=== PATIENT | female | born 1955 | race Caucasian/White ===

== ENCOUNTER → 2016-09-29 | Outpatient (CLI) | payer OTHER ==
[~2016-09-29] MED LIST: CLAR10CA3 PO; METO12TA PO; MULTTAB4 PO; PRAD150C PO
--- NOTE | 2016-10-05 08:06 | SLEEPCENT ---
DATE OF PROCEDURE: 09/29/2016 REQUESTING PROVIDER: Kayla Thomas NP INTERPRETATION: Nocturnal polysomnography was performed for the titration of pressure therapy in this patient with obstructive sleep apnea syndrome, apnea-hypopnea index of 5.2. For testing, the patient was fit with a [employer] Quattro full face mask of small size, 4 cm of water pressure were applied to the circuit, and the lights were extinguished. 7 hours and 21 minutes of data were reviewed. There were 379 minutes of sleep identified. Sleep latency was normal at 11.5 minutes. Rapid eye movement (REM) latency was delayed at 130 minutes. Sleep architecture was fairly good. There were three REM periods noted. Overall sleep efficiency was 87.7%. The patient's electrocardiogram (EKG) showed a sinus rhythm with an average heart rate of 60 beats per minute. Electroencephalogram (EEG) showed reasonably normal waveforms for awake and sleep. Respiratory events were fully palliated with a CPAP at a pressure of +4. CPAP tolerance was good. Remaining measures of sleep physiology were normal. IMPRESSION: 1. Obstructive sleep apnea syndrome (G47.33). RECOMMENDATIONS: Nightly use of pressure therapy at 4 cm of water.
== END | disposition home or self-care (01) ==
LOC: M SLEEP 19:43
PROVIDERS: ATTEND Nurse Practitioner Adult Health
DX: G47.33 Obstructive sleep apnea (adult) (pediatric) (principal)

== ENCOUNTER → 2016-11-15 | Outpatient (CLI) | payer OTHER ==
[2016-11-15 17:33] LABS: ALBUMIN/GLOBULIN RATIO 1.25 (1.00-1.93); ALKALINE PHOSPHATASE 124 U/L (45-117); ALT/SGPT 35 U/L (12-78); ANION GAP 5 MEQ/L (8-16); AST/SGOT 26 U/L (15-37); BILIRUBIN,TOTAL 0.8 MG/DL (0.2-1.0); BLOOD UREA NITROGEN 16 MG/DL (7-18); CALCIUM LEVEL 9.1 MG/DL (8.8-10.2); CARBON DIOXIDE LEVEL 31 MEQ/L (21-32); CHLORIDE LEVEL 106 MEQ/L (98-107); CREATININE FOR GFR 0.82 MG/DL (0.55-1.02); GLOMERULAR FILTRATION RATE > 60.0 (>45); GLUCOSE, FASTING 85 MG/DL (80-110); POTASSIUM SERUM 3.7 MEQ/L (3.5-5.1); SODIUM LEVEL 142 MEQ/L (136-145); TOTAL PROTEIN 7.2 GM/DL (6.4-8.2)
== END ==
LOC: M WUC 15:02
PROVIDERS: ATTEND Family Medicine
DX: N64.9 Disorder of breast, unspecified (principal)

== ENCOUNTER → 2017-12-01 | Outpatient (CLI) | payer OTHER ==
[2017-12-01 20:01] LABS: ANION GAP 7 MEQ/L (8-16); BLOOD UREA NITROGEN 16 MG/DL (7-18); CALCIUM LEVEL 8.7 MG/DL (8.8-10.2); CARBON DIOXIDE LEVEL 26 MEQ/L (21-32); CHLORIDE LEVEL 109 MEQ/L (98-107); CREATININE FOR GFR 0.79 MG/DL (0.55-1.30); GLOMERULAR FILTRATION RATE > 60.0 (>45); GLUCOSE, FASTING 79 MG/DL (70-100); POTASSIUM SERUM 4.1 MEQ/L (3.5-5.1); SODIUM LEVEL 142 MEQ/L (136-145)
== END ==
LOC: M WUC 16:51
DX: R17 Unspecified jaundice (principal)
CPT/HCPCS: 80048

== ENCOUNTER 2018-03-27 11:36 | Outpatient (RCR) | payer OTHER | END 2018-04-13 | LOC: M PT 11:36 | DX: Z51.89 Encounter for other specified aftercare (principal); M25.869 Other specified joint disorders, unspecified knee; R53.1 Weakness | CPT/HCPCS: 97110 ==

== ENCOUNTER → 2018-11-21 | Outpatient (CLI) | payer OTHER ==
[~2018-11-21] MED LIST changes: +METO-346 PO; -METO12TA PO
[2018-11-21 19:34] LABS: ALT/SGPT 27 U/L (12-78); BILIRUBIN,TOTAL 0.8 MG/DL (0.2-1.0); BLOOD UREA NITROGEN 16 MG/DL (7-18); CARBON DIOXIDE LEVEL 30 MEQ/L (21-32); CHLORIDE LEVEL 107 MEQ/L (98-107); CREATININE FOR GFR 0.82 MG/DL (0.55-1.30); GLOMERULAR FILTRATION RATE > 60.0 (>45); GLUCOSE, FASTING 94 MG/DL (70-100); POTASSIUM SERUM 4.2 MEQ/L (3.5-5.1); SODIUM LEVEL 142 MEQ/L (136-145); TOTAL PROTEIN 6.8 GM/DL (6.4-8.2)
== END ==
LOC: M WUC 17:23
PROVIDERS: ATTEND Family Medicine
DX: K21.9 Gastro-esophageal reflux disease without esophagitis (principal)

== ENCOUNTER 2021-02-05 11:41 | Outpatient (RCR) | payer MEDICARE, OTHER | END 2021-02-10 | LOC: M PT 11:41 | PROVIDERS: ATTEND Family Medicine | DX: M54.31 Sciatica, right side (principal) ==

== ENCOUNTER 2021-03-11 11:45 | Outpatient (RCR) | payer MEDICARE, OTHER | END 2021-03-13 | LOC: M PT 11:45 | PROVIDERS: ATTEND Orthopaedic Surgery Orthopaedic Surgery of the Spine | DX: M54.5 Low back pain (principal) ==

== ENCOUNTER → 2023-10-27 | Outpatient (CLI) | payer MEDICARE, OTHER | LOC: M SLEEP HO 10:36 | PROVIDERS: ATTEND Family Medicine | DX: G47.33 Obstructive sleep apnea (adult) (pediatric) (principal) ==